=== PATIENT | female | born 1960 | race African-American/Black ===

== ENCOUNTER 2017-10-15 13:22 | Outpatient (CLI) | payer OTHER ==
[2017-10-15 15:39] LABS: PTT 30.8 SEC (22.9-36.1); Prothrombin Time 12.3 SEC (12.0-14.7)
[2017-10-15 15:50] LABS: Anion Gap 10 mmol/L (10-20); BUN (Urea Nitrogen) 23 mg/dL (9.8-20.1); Calc. Creatinine Clearance 0 mL/min (70-130); Calcium 11.1 mg/dL (7.8-10.44); Carbon Dioxide 30 mmol/L (22-29); Chloride 104 mmol/L (98-107); Estimated GFR-MDRD 68
== END 2017-10-15 13:23 | disposition home or self-care (01) ==
LOC: LABBT 13:22
PROVIDERS: ATTEND Neurological Surgery
DX: Z01.812 Encounter for preprocedural laboratory examination (principal); M43.16 Spondylolisthesis, lumbar region
CPT/HCPCS: 80048; 85610; 85730; 93005; 93010

== ENCOUNTER 2017-10-16 05:41 | Day surgery (SDC) | payer OTHER ==
[2017-10-15 13:58] VITALS: BMI 31.6
--- NOTE | 2017-10-15 15:40 | HP ---
HISTORY OF PRESENT ILLNESS: Ms. Charles Salamanca is a very pleasant 57-year-old woman, who presents for ev aluation of lumbar back pain that radiates down the posterolateral legs bilaterally in the feet. She complains of burning pain in her feet and legs that worsen when walking. She has had 1 epidural denise roid injection that seems to have worsened her back symptoms in her opinion. MRI on disk provided re veals severe canal and bilateral neural foraminal narrowing at L4-L5 with associated grade I slip jin t is stable upon views of her flexion and extension films. She is ready for more definitive treatmen t other than the conservative one that she has been recommended today. PHYSICAL EXAMINATION: GENERAL: The patient is alert and oriented x3. NEUROLOGIC: Gait is normal, no ataxia. Lower extremity motor exam and provocative examination are n ormal. She does have sensory disturbance to bilateral feet and normal patellar reflexes bilaterally. PAST MEDICAL HISTORY: Significant for hypertension, diabetes, osteopenia, and hyperlipidemia. CURRENT MEDICATIONS: Diltiazem ER, metoprolol, chlorthalidone, ergocalciferol, atorvastatin, gabapen tin, amitriptyline, aspirin, Celebrex. ALLERGIES: STEROIDS and NAPROXEN. PAST SURGICAL HISTORY: section x2 and partial hysterectomy. ASSESSMENT: Lumbar spondylolisthesis with spinal stenosis and neurogenic claudication. PLAN: Dr. Vyas met with the patient, reviewed imaging, and ultimately advocated for an L4-L5 decomp ression. He explained to the patient the risks, benefits, and alternatives of the procedure. The georgette friedman expressed understanding and would like to move forward with surgery as discussed. I do believe the patient is mentally competent and capable of making medical decisions for herself. We will move forward with surgery as planned.
[2017-10-16] MEDS ORDERED: CEFAZOLIN/Water 2 GM/20 ML SYRINGE ONE ×2 (06:02→13:00)
[2017-10-16] MEDS ORDERED: Fentanyl 100 MCG/2 ML VIAL ONE ×4 (06:44→09:34)
[2017-10-16] MEDS ORDERED: Midazolam HCl 2 mg/2 ml Vial ONE (06:44)
[2017-10-16] MEDS ORDERED: Bupivacaine/Epinephrine 0.25% 30 ML VIAL ONE (06:52)
[2017-10-16] MEDS ORDERED: Thrombin 5000 UNITS/5 ML VIAL ONE (06:52)
--- NOTE | 2017-10-16 08:15 | OP ---
DATE OF PROCEDURE: 10/16/2017 SURGEON: Rohith Vyas M.D. THERMOGRAPH OPERATOR: Jayme Boggs PA-C INDICATION: Pain. DIAGNOSIS: Lumbar stenosis. PROCEDURE: L4-5 lumbar decompression. ANESTHESIA: General. TECHNIQUE: The patient was brought into the operating room and placed under general anesthesia. She was flipped from a supine to a prone position on the operating room table. A linear incision was pl anned over the L4-L5 segment. After prepping and draping and after an appropriate operative pause, t he incision was created. The soft tissues were swept away from midline. Self-retaining retractors w ere placed in the wound for optimal exposure. After confirming the levels of C-arm fluoroscopy, an A dson rongeur was used to remove the spinous process at the L4-5 segment. A high-speed cutting drill bit as well as 2, 3 and 4 mm Kerrisons were used to perform a laminectomy which included the medial a spect of the facet joints until the L4-5 segment was well decompressed. The wound was irrigated. He mostasis was maintained throughout. The wound was then closed in anatomic layers and a pressure dres sing was applied. There were no known procedural complications.
[2017-10-16] MEDS ORDERED: SUGAMMADEX SODIUM 500 MG/5 ML VIAL ONE (08:33)
[2017-10-16] MEDS ORDERED: Meperidine HCl/PF 25 MG/ML VIAL ONE (09:40)
[2017-10-16] MEDS ORDERED: HYDROcodone/Acetaminophen 5/325 mg Tablet ONE (12:19)
[2017-10-16] MEDS ORDERED: Dexamethasone 20 MG/5 ML VIAL ONE (15:12)
[2017-10-16] MEDS ORDERED: Ondansetron HCl/PF 4 MG/2 ML Vial ONE (15:12)
[2017-10-16] MEDS ORDERED: Lidocaine 1% PF 5 ML VIAL ONE (15:12)
[2017-10-16] MEDS ORDERED: Glycopyrrolate 0.2 MG/ML 5 ML SYRINGE ONE (15:12)
[2017-10-16] MEDS ORDERED: Propofol 200 MG/20 ML VIAL ONE (15:12)
== END 2017-10-16 13:25 ==
LOC: SDC 05:41
PROVIDERS: ATTEND Neurological Surgery
PROC: 01NB0ZZ Release Lumbar Nerve, Open Approach (ICD-10-PCS; principal; 2017-10-16)
DX: M48.061 Spinal stenosis, lumbar region without neurogenic claudication (principal); I10 Essential (primary) hypertension; E11.9 Type 2 diabetes mellitus without complications; E78.5 Hyperlipidemia, unspecified; E66.9 Obesity, unspecified; F17.200 Nicotine dependence, unspecified, uncomplicated; Z68.31 Body mass index [BMI] 31.0-31.9, adult; Z79.82 Long term (current) use of aspirin; Z79.899 Other long term (current) drug therapy; Z88.6 Allergy status to analgesic agent; Z88.8 Allergy status to other drugs, medicaments and biological substances; Z90.711 Acquired absence of uterus with remaining cervical stump; Z98.890 Other specified postprocedural states
CPT/HCPCS: 76000; 96374; J1100; J2001; J2175; J2250; J2405; J2704; J3010